=== PATIENT | female | born 1960 | race Caucasian/White ===

== ENCOUNTER 2025-07-14 09:00 | Outpatient (CLI) | payer OTHER | END 2025-07-14 09:01 | disposition home or self-care (01) | LOC: CSHMAMMO 09:00 | PROVIDERS: ATTEND Family Medicine | DX: Z12.31 Encounter for screening mammogram for malignant neoplasm of breast (principal); Z80.3 Family history of malignant neoplasm of breast; Z85.828 Personal history of other malignant neoplasm of skin | CPT/HCPCS: 77063; 77067 ==